=== PATIENT | female | born 1940 | race Caucasian/White ===

== ENCOUNTER 2022-04-08 13:41 | Outpatient (REF) | payer MEDICARE, OTHER, SELFPAY ==
[2022-04-08 15:37] LABS: Blood Urea Nitrogen 23 mg/dL (9-16); Estimated Glomerular Filt Rate 53
[2022-04-08 15:59] LABS: Thyroid Stimulating Hormone 3.08 uIU/mL (0.32-4.0)
[2022-04-08 16:12] LABS: Folate > 20.0 ng/mL (> or = 4.0); Vitamin B12 304 pg/mL (200-900)
== END 2022-04-08 13:42 | disposition home or self-care (01) ==
LOC: HO.LAB 13:41
PROVIDERS: PCP Internal Medicine; Visit Provider Psychiatry & Neurology Neurology
DX: G31.84 Mild cognitive impairment of uncertain or unknown etiology (principal)
CPT/HCPCS: 36415; 82565; 82607; 82746; 84436; 84443; 84520

== ENCOUNTER 2025-01-16 14:42 | Outpatient (AMB) | payer MEDICARE, OTHER, SELFPAY ==
--- NOTE | 2025-01-16 15:08 | A.OFFVIS_ITS ---
Intake Visit Reasons: 6 weeks f/u Accompanied by: Spouse Allergies sulfamethoxazole (From Bactrim) Allergy (Unknown, Verified 01/16/25 15:12) Unknown trimethoprim (From Bactrim) Allergy (Unknown, Verified 01/16/25 15:12) Unknown ALLOPURINAL Allergy (Unknown, Uncoded 01/16/25 15:12) Unknown CEPHALEXIN Allergy (Unknown, Uncoded 01/16/25 15:12) Unknown DOXYCYCLINE Allergy (Unknown, Uncoded 01/16/25 15:12) Unknown Medication List - Last Reconciled 01/16/25 by Bing Rudolph CNP atorvastatin 80 mg PO DAILY cinacalcet 30 mg PO DAILY fluticasone propionate 50 mcg/actuation 2 sprays intranasal DAILY gabapentin mg PO lisinopril 40 mg PO DAILY omeprazole 20 mg PO DAILY probenecid 500 mg PO BID propranolol 60 mg PO BID topiramate 25 mg PO BEDTIME HPI Comments Details: Ocular migraines were pretty good with topiramate. They were not even happening once a week. No medication side effects. Pain to bottom of feet and tenderness to sides of feet was stable with current dose of gabapentin and has not had much at all. Sleep was okay at night, using CPAP, and sleep was not disrupted from pain. Walking with cane. She was had one fall when changing positions. She was still having some dizziness, especially when changing positions. Started to have more ocular migraines when propranolol dose reduced from 80mg twice a day to 60mg twice a day by PCP?due to low heart rate and dizziness in 08/2024. Ocular migraines were?happening about 3x/week and lasting up to 20 minutes. It may happen twice in one day. No subsequent headache. No specific triggers. No family history of migraines. She has not had severe migraine headache with photophobia, sonophobia, or nausea for many years. Around 2015, she started having ocular migraines characterized by zigzags in her vision, circles of lights, and other phenomenon that last from 2-20 minutes without any pattern and are not followed by headache. She tried verapamil 120mg/day for few months which did not help. Burning in her left foot on the out border. Soles and sides of feet hurt. Diagnosed with neuropathy several years ago. She apparently had nerve conduction study done at [facility], the record of which is not available. She started also noticing some short-term memory problems beginning in 2021. [facility] Medical History (Updated 01/16/25 @ 15:11 by Bing Rudolph CNP) ANGIE on CPAP MCI (mild cognitive impairment) Hypertension Peripheral neuropathy Migraine Ocular migraine Review of Systems Const Denies chills, Denies daytime sleepiness, Reports difficulty sleeping, Denies fatigue, Denies fever(s), Denies frequent falls, Reports headache(s), Denies increased appetite, Denies poor appetite, Denies snoring, Denies weakness, Denies weight gain and Denies weight loss Eyes Denies loss of vision ENT Denies vertigo, Denies dizziness, Reports headache(s) and Denies neck pain Card Denies chest pain at rest, Denies chest pain with activity, Denies syncope, Denies leg edema, Denies palpitations, Denies dyspnea and Denies dyspnea on exertion Resp Denies cough, Denies dyspnea, Denies dyspnea on exertion and Denies snoring GI Denies abdominal pain, Denies constipation, Denies heartburn, Denies diarrhea and Denies nausea Denies urinary frequency, Denies urinary incontinence and Denies urinary urgency Musc Denies abnormal gait, Reports back pain, Reports myalgias, Reports arthralgias, Denies neck pain, Reports numbness and Reports tingling Neuro Denies abnormal gait, Denies vertigo, Denies dizziness, Denies syncope, Denies frequent falls, Reports headache(s), Denies lack of coordination, Denies loss of vision, Reports memory loss, Reports numbness, Denies Other visual disturbances, Denies restless legs, Denies seizure-like activity, Reports tingling, Denies paresthesias, Denies tremor(s) and Denies weakness Psych Denies anxiety, Denies depression, Denies auditory hallucinations, Reports memory loss and Denies visual hallucinations Endo Denies fatigue and Denies palpitations Physical Exam Const Other: General Appearance:? normal, in no acute distress. Heart:? S1, S2 normal, no murmurs. Lungs:? clear anteriorly and posteriorly. Musculoskeletal:? normal. Extremities:? no edema. Psych:? alert, oriented, cognitive function intact, cooperative with exam. Neuro Other: Abnormal Neurological Findings:?Absent ankle reflexes. Decreased vibration and pinprick sensation below ankle. In wheelchair. Mental Status: alert and oriented X 3. Normal attention, orientation, memory, and affect. Cranial Nerves: Pupils are equal, round, and reactive to light. External ocular muscles are intact. Visual crouch are full, no ptosis. Face is symmetrical, no facial weakness or droop. Facial sensations are normal. Tongue protrudes in midline. Palate elevates symmetrically. Shoulder shrugging is normal Motor Examination: As above, otherwise normal muscle tone, bulk and strength. No atrophy or fasciculations. No drift of the extended upper extremities. DTR 2+. Plantars are flexor. Sensory Exam: As above, otherwise normal light touch, temperature, pinprick, vibration, and joint-position sensations. Rhomberg sign is absent. Coordination: No ataxia. No titubation. Jvkcde-ve-mgxg, pphd-nlej-cpao test, and rapid alternating movements were normal. Gait Exam: In wheelchair. Cerebellar Signs: Apwxcx-rh-kmqd and pozb-im-ckul is normal. No dysdiadochokinesia. Extrapyramidal System: No tremor, rigidity with normal facial expressions. No bradykinesia. No bradyphrenia. Normal arm swing and posture. No propulsion or retropulsion. Speech: Normal. No dysphasia or dysarthria. Assessment & Plan Assessment & Plan (1) Ocular migraine: Code(s): G43.109 - Migraine with aura, not intractable, without status migrainosus Category: Medical Plan: Continue topiramate 25mg 1 tablet at bedtime. Decrease propranolol 40mg 1 tablet twice a day. (2) Peripheral neuropathy: Code(s): G62.9 - Polyneuropathy, unspecified Category: Medical Qualifiers: Peripheral neuropathy type: polyneuropathy, unspecified Qualified Code(s): G62.9 - Polyneuropathy, unspecified Plan: Continue gabapentin 600mg 1 tablet in the morning, 1 tablet in the evening, and 2 tablets at bedtime (3) MCI (mild cognitive impairment): Code(s): G31.84 - Mild cognitive impairment of uncertain or unknown etiology Category: Medical Plan . Medications: New topiramate 50 mg PO .at bedtime 90 tabs 1RF 90 days propranolol 40 mg PO BID 180 tabs 1RF 90 days Discontinued topiramate Discontinued Reason: Order 25 mg PO BEDTIME Coding Level of Care Code Est Pt Level 4 (61696) Diagnoses Ocular migraine G43.109 Peripheral polyneuropathy G62.9 Peripheral neuropathy type: polyneuropathy, unspecified MCI (mild cognitive impairment) G31.84
--- OUTSIDE RECORDS SUMMARY | 2025-01-16 15:16 | XMS_ITS | Clinical Summary ---
Author Organization [facility] Address [address] [place] [address] Care Team Providers Care Body Builder Name Role Phone Adair Merrill MD Primary Care Provider Allergies Active Allergy Reactions Criticality Noted Date Comments Allopurinol 12/13/2020 Sulfamethoxazole-Trimethoprim 2020 Cephalexin 12/13/2020 Ciprofloxacin 12/13/2020 Doxycycline 12/13/2020 Medications Medication Sig Dispensed Refills Start Date End Date Status atorvastatin (LIPITOR) tablet 40 mg Take 2 tablets (80 mg total) by mouth daily. 0 Active probenecid (BENEMID) 500 MG tablet Take 1 tablet (500 mg total) by mouth 2 (two) times a day. 0 Active omeprazole (PriLOSEC) 20 MG capsule Take 1 capsule (20 mg total) by mouth daily. 0 Active lisinopril (PRINIVIL,ZESTRIL) tablet 20 mg Take 1 tablet (20 mg total) by mouth daily. 0 Active Multiple Vitamins-Minerals (PRESERVISION AREDS 2 PO) Take by mouth. 0 Active Multiple Vitamin (VITAMIN E/FOLIC ACID/B-6/B-12 PO) Take by mouth. 0 Act jacqueline folic acid (FOLVITE) tablet 1 mg Take 1 tablet (1 mg total) by mouth daily. 0 Active amoxicillin (AMOXIL) 500 MG capsule Take 1 capsule (500 mg total) by mouth continuous prn. Prior to dental procedures 0 Active gabapentin (NEURONTIN) 600 MG tablet Take 1 tablet (600 mg total) by mouth 3 (three) times a day. 0 Active salmeterol (SEREVENT) 50 MCG/DOSE diskus inhaler Inhale 1 inhalation. into the lungs 2 (two) times a day. 0 Active verapamil (VERELAN PM) 120 MG 24 hr capsule Take 1 capsule (120 mg total) by mouth every night at bedtime. 0 Active propranolol (INDERAL) 80 MG tablet Take 1 tablet (80 mg total) by mouth 3 (three) times a day. 0 Active ezetimibe (ZETIA) tablet 10 mg Take 1 tablet (10 mg total) by mouth daily. 0 Active aspirin EC 81 MG tablet Take 1 tablet (81 mg total) by mouth daily. 0 Active Umeclidinium-Vilante rol (Anoro Ellipta) 62.5-25 MCG/ACT AEPB Inhale into the lungs. 0 Active Apoaequorin (PREVAGEN PO) Take by mouth. 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), right 01/04/2018 Gastroesophageal reflux disease 12/25/2017 COPD (chronic obstructive pulmonary disease) 11/2017 Immunizations Name Administration Dates Next Due Covid-19 (Pfizer) Dilution Required 08/22/2020,0 08/01/2020 Social History Tobacco Use Types Packs/Day Years Used Date Smoking Tobacco: Never Assessed Sex and Gender Information Value Date Recorded Sex Assigned at Not on file Gender Identity Not on file Sexual Orientation Not on file Job Start Date Occupation Industry Not on file Not on file Not on file Last Filed Vital Signs Vital Sign Reading Time Taken Comments Blood Pressure 144/53 12/14/2023 1:12 PM EDT Pulse 66 12/14/2023 1:12 PM EDT Temperature 36.1 C (97 F) 12/14/2023 1:12 PM EDT Respiratory Rate - - Oxygen Saturation 94% 12/14/2023 1:12 PM EDT Inhaled Oxygen Concentration - - Weight 126.7 kg (279 lb 6.4 oz) 12/14/2023 1:12 PM EDT Height - - Body Mass Index - - Plan of Treatment Health Maintenance Due Date Last Done Comments Depression Screening 1954 Preventative Health Evaluation 1960 DTap / Tdap / Td (1 - Tdap) 1961 Fall Risk Assessment 2007 Osteoporosis Screening (DEXA Scan) 2007 RSV Adult > 60+ Yrs or (1 - 1-dose 75+ series) 2017 Shingrix-Zoster Vaccine (2 of 2) 11/23/2018 09/28/2018 COVID-19 Vaccine ( season) 2024 10/04/2021, 03/21/2021, 08/22/2020, Additional history exists Influenza Vaccine (#1) 2025 3, 03/21/2021, 03/22/2019, Additional history exists Pneumococcal Vaccine Completed 04/14/2023, 04/18/2014, 01/31/2010 Hepatitis B Vaccines Aged Out No long er eligible based on patient's age to complete this topic RSV Ped < 20 months Aged Out No longe r eligible based on patient's age to complete this topic Care Teams Body Builder Relationship Specialty Start Date End Date Adair Merrill MD [address] [place] [address] PCP - General Internal Medicine 12/13/21
--- OUTSIDE RECORDS SUMMARY | 2025-01-16 15:16 | XMS_ITS | Clinical Summary ---
Author Organization [employer] [address] [place] [address] [place] [phone] Phone Care Team Providers Care Selling Underwriter Name Role Phone Adair Merrill MD Primary Care Provider Encounters Date Type Department Care Team Description 11/11/[address] [facility] [address] [facility] [place] [address] Justine Hall DO Dysuria from Last 3 Months Immunizations Name Administration Dates Next Due Pfizer (ages 12 & older) JAY S-CoV-2 COVID-19, mRNA, LNP-S, wanda-sucrose, preservative free 10/04/2021 Pfizer SARS-CoV-2 COVID-19, mRNA, LNP-S, preservative free 03/21/2021 Medical History Medical History Date Comments Coronary artery disease DX:Coron jeremy artery disease Social History Tobacco Use Types Packs/Day Years Used Date Smoking Tobacco: Never Assessed Comments Unknown Sex and Gender Information Value Date Recorded Sex Assigned at Not on file Legal Sex Female 5:52 PM EST Gender Identity Not on file Sexual Orientation Not on file Obstetrics History Last Filed Vital Signs Vital Sign Reading Time Taken Comments Blood Pressure 144/53 12/14/2023 1:12 PM EDT Lef t arm Pulse 66 12/14/2023 1:12 PM EDT Temperature - - Respiratory Rate - - Oxygen Saturation - - Inhaled Oxygen Concentration - - Weight 127 kg (279 lb 6.4 oz) 12/14/2023 1:12 PM EDT Height - - Body Mass Index - - Plan of Treatment Health Maintenance Due Date Last Done Comments DTaP,Tdap,and Td Vaccines (1 - Tdap) 1961 Pneumococcal Vaccine: 50+ Years (1 of 2 - PCV) 1961 Zoster Vaccines (1 of 2) 1961 RSV Immunization Adult Patients (1 - 1-dose 75+ series) 2017 Cholesterol Screening (Lipid Panel) 06/01/2022 Colorectal Cancer Screening: Colonoscopy 06/01/2022 Falls Risk Assessment 06/01/2022 Osteoporosis Screening (Bone Density Screening) 06/01/2022 Social Influencers of Health Screening 06/01/2022 Hypertension/CHF/CAD Annual BMP Blood Test 06/06/2022 Medicare Annual Wellness Visit 04/15/2023 04/15/2022 COVID-19 Vaccine ( season) 2024 10/04/2021, 03/21/2021, 08/22/2020, Additional history exists Depression Screening 06/22/2024 Influenza Vaccine (#1) 2025 3, 03/19/2022, 03/21/2021, Additional history exists HIB Vaccines Aged Out No longer eligi ble based on patient's age to complete this topic HPV Vaccines Aged Out No longer eligi ble based on patient's age to complete this topic Hepatitis A Vaccines Aged Out No long er eligible based on patient's age to complete this topic Hepatitis B Vaccines Aged Out No long er eligible based on patient's age to complete this topic IPV Vaccines Aged Out No longer eligi ble based on patient's age to complete this topic MMR Vaccines Aged Out No longer eligi ble based on patient's age to complete this topic Meningococcal ACWY Vaccine Aged Out N o longer eligible based on patient's age to complete this topic Meningococcal B Vaccine Aged Out No l onger eligible based on patient's age to complete this topic RSV Immunization Patients Under 20 months Aged Out No longer eligible based on patient's age to complete this topic Varicella Vaccines Aged Out No longer eligible based on patient's age to complete this topic Procedures Procedure Name Priority Date/Time Associated Diagnosis Comments CULTURE URINE Routine 11/11/2024 12:00 AM EDT Dysuria from Last 3 Months Results * (ABNORMAL) Culture urine (11/11/2024 12:00 AM EDT) Culture, Urine >100,000 CFU/mL Escherichia coli(A) DENNY 11/13/2024 12:45 PM EDT [facility] Comment: This is an edited result. Previous organism was Gram negative bacilli on 11/12/2024 at 0750 EDT. Urine Urine specimen from urethra / Unknown 11/11/2024 11/11/2024 5:50 PM EDT Narrative Organism Antibiotic Method Susceptibility Escherichia coli Amoxicillin/Clavulanate DENNY 16 ug/ml: Intermediate Escherichia coli Ampicillin/Sulbactam DENNY 16 ug/ml: Intermediate Escherichia coli Piperacillin/Tazobactam DENNY <=4 ug/ml: Susceptible Escherichia coli Cefazolin (Urine) DENNY 8 ug/ml: Susceptible Escherichia coli Cefoxitin DENNY <=4 ug/ml: Susceptible Escherichia coli Ceftazidime DENNY <=0.5 ug/ml: Susceptible Escherichia coli Ceftriaxone DENNY <=0.25 ug/ml: Susceptible Escherichia coli Cefepime DENNY <=0.12 ug/ml: Susceptible Escherichia coli Meropenem DENNY <=0.25 ug/ml: Susceptible Escherichia coli Amikacin DENNY 2 ug/ml: Susceptible Escherichia coli Gentamicin DENNY >=16 ug/ml: Resistant Escherichia coli Ciprofloxacin DENNY <=0.06 ug/ml: Susceptible Escherichia coli Levofloxacin DENNY <=0.12 ug/ml: Susceptible Escherichia coli Nitrofurantoin DENNY <=16 ug/ml: Susceptible Escherichia coli Trimethoprim/Sulfamethoxazole DENNY >=320 ug/ml: Resistant Justine Hall DO LAB MICROBIOLOGY - GENERAL ORDER VALERIE Final Result [facility] [address] [place] [address], from Last 3 Months Insurance [employer] MEDICARE Care Teams Selling Underwriter Relationship Specialty Start Date End Date Adair Merrill MD [address] [place] [address] PCP - General Internal Medicine 10/01/17
--- OUTSIDE RECORDS SUMMARY | 2025-01-16 15:16 | XMS_ITS | Clinical Summary ---
Author Organization [facility] Address [address] [place] [address] Care Team Providers Care Mate Fishing Vessel Name Role Phone Unavailable Primary Care Provider Unavailabl e Social History Tobacco Use Types Packs/Day Years Used Date Smoking Tobacco: Never Assessed Comments Unknown Sex and Gender Information Value Date Recorded Sex Assigned at Not on file Legal Sex Female 12:40 PM EDT Gender Identity Not on file Sexual Orientation Not on file Plan of Treatment Health Maintenance Due Date Last Done Comments DTaP/Tdap/Td Vaccines (1 - Tdap) 1961 Pneumococcal Vaccines 50+ (1 of 1 - PCV) 1992 Zoster (Shingles) Vaccine (1 of 2) 1992 RSV Vaccine 60 years and old er and Patients (1 - 1-dose 75+ series) 2017 COVID-19 Vaccine (2023-2 5 season) 2024 Hepatitis B Vaccines Aged Out No long er eligible based on patient's age to complete this topic
--- OUTSIDE RECORDS SUMMARY | 2025-01-16 15:16 | XMS_ITS | Data Portability ---
Author Organization [facility], [facility] Address [address] [place] [address] Care Team Providers Care Financial Risk Manager Name Role Phone SARAH BETH NAM Primary Care Provider [phone] Assessment Encounter Date Assessment Date Assessment LastModified by Organization Details LastModified Time 12/01/2023 12/01/2023 PROBLEM: History of bilateral total knees HISTORY: The patient is an 83-year-old female whom I cared for in the past performed staged bilateral total hips. Apparently 1998 the patient underwent simultaneous bilateral total knees. The patient reports that in the last few weeks she has noticed increasing pain. Her right leg is worse than her left. She fell on her left leg about 6 weeks ago and her right about 3 weeks ago. She uses a rollator walker at all times. Is unclear to me when she last had long-term follow-up for her knees in the past. Knees were performed by Dr. Jeter and are [place] knees. The patient ambulates with a rollator walker. She denies any new onset mechanical symptoms. She thinks she may notice some swelling. The patient's knee symptom profile form was reviewed and is part of the medical record. The patient remains symptomatic and has had an unsuccessful history of appropriate conservative therapy (non-surgical medical management). Non-surgical medical management has been implemented for 3 months or more to assess effectiveness. Conservative treatment as clinically appropriate for the patient s current episode of care including, but not limited to, one or more of the following: anti-inflammator y medications, analgesics, flexibility and muscle strengthening exercises, supervised physical therapy (Activities of daily living (ADLs) diminished despite completing a plan of care), activity restrictions as is reasonable, assistive device use, weight reduction as appropriate, and therapeutic injections into the joint as appropriate PFMSH and ROS have been reviewed, updated, and is located in the patient s chart. PAST MEDICAL HISTORY: Past medical history is significant for hypercholesterol emia, COPD, shortness of breath, hypertension, hepatitis, acid reflux, back pain PAST SURGICAL HISTORY: Past surgical history includes bilateral total knees and bilateral total hips MEDICATIONS: Please see intake form. ALLERGIES: Patient reports an allergy to allopurinol, doxycycline, Bactrim, cephalexin, Cipro, Vesicare does not report an allergy to metal, latex, Iodine, tape, or adhesives. SOCIAL HISTORY: The patient is retired. She comes the office today with her . She does not consume tobacco or illegal drugs. Consumes 2-3 alcoholic beverages per week. She last saw the dentist 2 months ago. She has a ramp and support system at home. PHYSICAL EXAMINATION: Please see vitals recorded below Mental status: Alert and lucid. Normal insight, affect, and grooming. RACKER OCTAVE BOARD: Gross motor coordination is intact. No spasticity or clonus noted. Extremities: Calves are soft and nontender. Skin intact. Palpable pedal pulses equal bilaterally. ORTHOPEDIC EXAMINATION: Negative SLR tests bilaterally. Full ROM of both hips without pain. No trochanteric tenderness. Evaluation of knees: Bilateral Knee range of motion is 0-110 degrees. Knee is stable to varus/valgus loading, anterior/posteri or drawer testing, Bekah testing. No erythema, no redness. There is moderate sub patellar crepitus. Patient has no grinding. She has mild anterior posterior glide. She has ecchymosis on her left lower extremity. She has well-healed surgical scars bilaterally Peripheral vascular, lymphatic examination, skin, neurological coordination, reflexes, and sensation are within normal limits. IMAGING: X-rays ordered, obtained, and reviewed in the office today on [facility] PACS: Weightbearing AP of both knees, lateral of the right knee, and sunrise view of both knees demonstrate; Show appropriate position of the patient's bilateral t total knee arthroplasty. Overall limb alignment is neutral. Implant position is satisfactory. Patellar tracking is midline. Bone implant interfaces are intact and no evidence of fracture or osteolysis. There is no specific evidence of osteolysis. There is no specific evidence of asymmetric wear. Presently she is are CR knees. IMPRESSION: Status post bilateral total knees with new onset pain PLAN: The patient does have bilateral total knees that are nearly 27 years of age. Therefore sterile condominiums. The probability of symptomatic polyethylene wear is quite high. However, based on the patient's history and multiple medical problems I would very hesitant to proceed with surgical intervention. Review of x-rays does demonstrate evidence of fracture. Further there is no evidence of asymmetric wear of the polyethylene. Initially I plan to get CT scans to evaluate for osteolysis. However the patient is unsure if she would even want surgical intervention nor do I know if replacement liners are available. Ultimately decided on a short course of physical therapy for mobilization. Hopefully this will help decrease the patient's symptoms. Will have her return to the office for reevaluation after PT. If she remains symptomatic we will obtain CT scans and three-phase bone scan. The patient knows I will be happy to meet with them at any time in order to review any additional questions or concerns that they might have. Patient was satisfied with this plan. I attempted to answer all of the patient's questions. [facility] speech recognition neon glass bender software was used to create portions of this document. An attempt at proofreading has been made to minimize errors. Please call for corrections. nina Not available 12/01/2023 15:54:35 Plan of Treatment Reminders Order Date Submit Date Provider Last Modified By Organization Details Last Modified Time Details Appointments None recorded . Lab None recorded . Referral physical therapis t referral - GAIT TRAINING AND AMBULATI ON BILATERA L KNEE S/P TKR 03/18/19 99 2023 024 [email or web address] [facility] ([facility]), [address], [place], [address], 4 11:51:14 Procedures None recorded . Surgeries None recorded . Imaging XR, knee, 4 or more view - RM 204/BILA TERAL TKR 03/18/19 99 2023 024 [email or web address] [facility], [address], [facility] [address], [place], [address], 4 11:51:13 Medication Orders None recorded . Patient TargetsNo targets recorded. Patient InstructionsNo instructions recorded. Reason for Referral Physical Therapist Referral for History of bilateral knee arthroplasty GAIT TRAINING AND AMBULATION GAIT TRAINING AND AMBULATIONBILATERAL KNEE S/P TKR 03/18/1999 Referring Physician: Errol Chavez, Orthopedic Surgery, [id number] Encounter Date: 12/01/2023 Results Created Date Observation Date Name Description Value Unit Range Abnormal Flag Note LastModifiedBy Organization Detail LastModifiedTime 12/01/19 24 12/01/2023 XR, knee, 4 or more view [email or web address] ?Encry pted=s hAaTro YD8dLq bEUv6g %2BXZw aYqtaq 0bqfl% 2Fg9IQ a4ajBk vP9nXo QUaueC m3YtLR FvZlgJ JJ8mAn HZtai3 5j7884 AC0Kua XWNUab eUC8mr 84%3D INTERFACE [facility] [address] [facility] [address], [place], [address], 12/01/2023 14:55:26 12/01/19 24 12/01/2023 XR, knee, 4 or more view [email or web address] ?Encry pted=s hAaTro YD8dLq bEUv6g %2BXZw aYqtaq 0bqfl% 2Fg9IQ a4ajBk vP9nXo QUaueC m3YtLR FvZlgJ JJ8mAn HZtai3 0s5320 AC0Kua XWNUab eUC8mr 84%3D INTERFACE [facility] [address] [facility] [address], [place], [address], 12/01/2023 14:55:28 Result Notes Documentation Provider Name and Address Organization Details Recorded Time Xr, Knee, 4 Or More View : [email or web address] Encrypted=xzBwZhvII9uAjaD Uv6g%1EHWurCetzn0wfkp%2Fg 7UPv6rdFjqQ6nWaGUvnaAs9Iz QGJkDsxCMJ8aDmJBzyg80z329 0PA2RbiJPHFtewVE3pg49%3D Not Available [facility] 12/01/2023 14:5 5:26 Xr, Knee, 4 Or More View : [email or web address] Encrypted=ogPsCdaLQ1eOmcS Uv6g%3WCLotGejby1hpdc%2Fg 0CAs2isYavX2vUcZMvqdPc0Af NHAmImoYQA3iHjTSska11r987 6SP4YrjOOCYxgqNE5uw31%3D Not Available [facility] 12/01/2023 14:5 5:29 Problems Name Problem SNOMED Code Status Onset Date Resolution Date Notes Provider Name and Address Organization Details Recorded Time No complaints 263124958 Active Status : 'A'; Not Available [facility] 09:21:02 Rotator cuff arthropath y of right shoulder 3930375938914 9106 Active 2023 Andrea Cedeno PA-C [address] [facility] [place], [place], [address] , [facility] 12:44:55 Problem Notes None recorded. Procedures Surgical History Date Name Laterality Status Provider Name and Address Organization Details Recorded Time 5 Sports Shoulder Bilateral completed Andrea Cedeno PA-C [address] [facility] [place], [place], [address], [facility] 11/08/2024 13:43:25 4 Sports Shoulder completed Andera Cedeno PA-C [address] [place] [address], [address], [facility] 10/28/2023 12:44:42 Imaging Results None recorded. Procedure Notes None recorded. Medical Equipment None Reported. Allergies Allergen ID Allergen Name Allergen Category Reaction Reaction Severity Criticality Documentation Date Start Date Code Code System Note Provider Name and Address Organization Details Recorded Time 571990 Cipro medicatio n Not available Not available Not available 08/24/2023201856 3 RxNorm Not Available [facility] 16:01:25 430049 Bactrim medicatio n Not available Not available Not available 08/24/20232018 48871 9 RxNorm Not Available [facility] 4 16:01:25 316747 allopurin ol medicatio n Not available Not available Not available 12/01/2023 519 RxNorm PALOMO PELLETIER [facility] 4 14:42:15 394417 doxycycli ne Not available Not available Not available Not available 12/01/2023 3640 [facility] 4 14:42:20 840639 cephalexi n medicatio n Not available Not available Not available 12/01/2023 2231 RxNorm PALOMO PELLETIER [facility] 4 14:42:31 337938 Vesicare medicatio n Not available Not available Not available 12/01/2023 53505 2 [facility]Norm [facility] 4 14:42:39 Medications Name Sig Start Date Stop Date Status Note LastModified by Organization Details LastModified Time amoxicillin 500 mg capsule TAKE 1 CAPSULE BY MOUTH THREE TIMES DAILY UNTIL FINISHED active Not Available Not Available No t Available atorvastatin 80 mg tablet active Not Available Not Available Not Available gabapentin 600 mg tablet active Not Available Not Available Not Available propranolol 80 mg tablet TAKE 1 TABLET BY MOUTH DAILY FOR 1 WEEK THEN INCREASE TO TAKE 1 tablet TWICE DAILY directed active Not Available Not Available Not Available cefpodoxime 100 mg tablet TAKE 1 TABLET BY MOUTH TWICE DAILY FOR 7 DAYS active Not Available Not Available No t Available lisinopril 20 mg tablet active Not Available Not Available Not Available propranolol 60 mg tablet TAKE 1 TABLET BY MOUTH TWICE DAILY active Not Available Not Available No t Available tramadol 50 mg tablet TAKE 1 TABLET BY MOUTH every 12 hours NEEDED FOR SEVERE PAIN active Not Available Not Available Not Available propranolol 40 mg tablet active Not Available Not Available Not Available triamcinolon e acetonide 0.1 % dental paste apply 1 application By Mouth 3 times a day active Not Available Not Available Not Available cephalexin 500 mg capsule TAKE 1 CAPSULE BY MOUTH THREE TIMES DAILY active Not Available Not Available Not Available omeprazole 20 mg capsule,tobias yed release active Not Available Not Available Not Available amoxicillin 250 mg capsule TAKE 1 CAPSULE BY MOUTH THREE TIMES DAILY UNTIL FINISHED active Not Available Not Available No t Available mupirocin 2 % topical ointment Apply to wound on face twice daily for two weeks. active Not Available Not Available N ot Available furosemide 20 mg tablet TAKE 1 TABLET BY MOUTH DAILY NEEDED FOR EDEMA active Not Available Not Available No t Available azelastine 137 mcg (0.1 %) nasal spray instill 2 SPRAYS IN BOTH nostrils TWICE DAILY NEEDED FOR ALLERGY symptoms active Not Available Not Available No t Available ipratropium bromide 42 mcg (0.06 %) nasal spray instill 2 sprays into Both nostrils 3 times a day as needed for nasal congestion active Not Available Not Available N ot Available propranolol 20 mg tablet active Not Available Not Available Not Available lisinopril 40 mg tablet active Not Available Not Available Not Available fluticasone propionate 50 mcg/actuatio n nasal spray,suspen ekra instil 2 SPRAYS IN EACH nostril DAILY. shake WELL BEFORE using active Not Available Not Available No t Available diazepam 5 mg tablet TAKE 1-2 tabletS BY MOUTH 1 hour prior to procedure (upon arrival to office) active Not Available Not Available No t Available amoxicillin 875 mg-potassium clavulanate 125 mg tablet TAKE 1 TABLET BY MOUTH TWICE DAILY FOR 10 DAYS active Not Available Not Available No t Available probenecid 500 mg tablet active Not Available Not Available Not Available oxycodone 5 mg tablet TAKE 1 TABLET BY MOUTH every 4 hours NEEDED FOR PAIN active Not Available Not Available No t Available ezetimibe 10 mg tablet TAKE 1 TABLET BY MOUTH DAILY active Not Available Not Available Not Available Vitamin D3 25 mcg (1,000 unit) tablet TAKE 1 TABLET BY MOUTH DAILY active Not Available Not Available Not Available cinacalcet 30 mg tablet TAKE 1 TABLET BY MOUTH DAILY active Not Available Not Available Not Available oxycodone HCl-oxycodon e-ASA Take 1-2 tabs every 6 hours as needed. 2019 active Statu s: 'Curr ent'; Not Available Not Available Not Available Anoro Ellipta 62.5 mcg-25 mcg/actuatio n powder for inhalation active Not Available Not Available N ot Available Vitals Date Recorded Body height Body mass index (BMI) Body weight Provider Name and Address Organization Details Last Updated DateTime 10/28/2023 160.02 cm 48.5 kg/m2 050583.31 g Andrea Cedeno PA-C [address], [place], [address], [facility] 10/28/2023 12:20:37 Date Recorded Body height Body mass index (BMI) Body weight Provider Name and Address Organization Details Last Updated DateTime 11/08/2024 162.56 cm 47.5 kg/m2 263137.09 g Andrea Cedeno PA-C [address] [facility] [address], [place], [address], [facility] 11/08/2024 13:25:26 Date Recorded Body height Body mass index (BMI) Body weight Provider Name and Address Organization Details Last Updated DateTime 12/01/2023 162.56 cm 47.5 kg/m2 814762.09 g PALOMO PELLETIER [facility] 12/01/2023 14:41:29 Date Recorded Body height Body mass index (BMI) Body weight Provider Name and Address Organization Details Last Updated DateTime 01/13/2024 162.56 cm 47.5 kg/m2 715202.09 g Tenisha Reich [facility] 01/13/2024 14:25:55 Social History Question Answer Notes LastModified by Touch[employer] Details LastModified Time Tobacco Smoking Status Never Smoker Andrea Cedeno PA-C [address] [address], [place], [address], [facility] 11/08/2024 13:26:08 What Is Your [facility] Status? [email or web address] Information not available 11/08/2024 Sex: Unknown Functional Status Question Answer Note LastModified by TouchMail Details LastModified Time How many times per week do you consume alcohol? 1-2 times per week Information not available 11/08/2024 Do you use any illicit or recreational drugs? No Information not available 11/08/2024 What is your level of alcohol consumption? Occasional Information not available 11/08/2024 Mental Status None recorded. Family History Nothing Reported. Medical History Condition Response Arthritis Y Asthma Y Sleep Apnea Y Hypertension Y Gynecological HistoryNo gynecological history recorded. Obstetrics History GPAL:G 0 P 0 0 0 0 Past Encounters Encounter ID Performer Location Encounter Start Date Encounter Closed Date Diagnosis/Indication Diagnosis SNOMED-CT Code Diagnosis ICD10 Code Diagnosis Note [id number] [facility] [address] [place] [address] 10/28/2023 12:07:15 11/10/2023 12:54:32 Rotator cuff arthropathy of right shoulder 8876078477 4561391 M25.581 [id number] MD Anna [facility] [address] [place] [address] 12/01/2023 14:15:06 01/04/2024 11:51:13 History of bilateral knee arthroplasty 7889682253 475363 Z96.726 [id number] [facility] [place] [address] [place] [address] 01/13/2024 14:20:21 01/13/2024 15:58:04 History of bilateral total knee replacement 7156729163 570463 Z96.653 Degenerati on of lumbar intervertebral disc 91402154 M51.36 [id number] Andrea Cedeno PA-C [facility] [address] [place] [address] 11/08/2024 13:19:59 11/10/2024 14:32:42 Rotator cuff arthropathy of right shoulder 7351263702 5504569 M25.811 Health Concerns Section Related Observation LastModified by Organization Detai ls LastModified Time None Recorded Concern Status LastModified by Organization Details LastModified Time None Recorded Advance Directives Directive None Recorded Payers Insurance Date Sequence Insurance Name Policy Number Policy [place] Covered Member ID [place] Member ID Guarantor Name 11/08/2024 1 [place] [employer] Tana Orozco [id number] Tana Orozco 11/11/2024 2 [facility] (MEDICARE SUPPLEMENT) Tana Orozco [id number] Tana Orozco OBGyn Episode No OBEpisode recorded.
== END 2025-01-16 15:32 | disposition home or self-care (01) ==
LOC: HO.HSM 14:43
PROVIDERS: PCP Internal Medicine; Referring Provider Internal Medicine; Visit Provider Registered Nurse
DX: G43.109 Migraine with aura, not intractable, without status migrainosus (principal); G62.9 Polyneuropathy, unspecified; G31.84 Mild cognitive impairment of uncertain or unknown etiology
CPT/HCPCS: 99214

== ENCOUNTER → 2025-01-16 14:42 | Outpatient (BNVA) | payer MEDICARE, OTHER, SELFPAY | PROVIDERS: PCP Internal Medicine; Referring Provider Internal Medicine; Visit Provider Registered Nurse | DX: G43.109 Migraine with aura, not intractable, without status migrainosus (principal); G62.9 Polyneuropathy, unspecified; G31.84 Mild cognitive impairment of uncertain or unknown etiology | CPT/HCPCS: 99212 ==

== ENCOUNTER 2025-04-11 14:35 | Outpatient (AMB) | payer MEDICARE, OTHER, SELFPAY ==
--- NOTE | 2025-04-11 14:37 | MHC.OFFVIS ---
Intake Visit Reasons: 3m Accompanied by: Spouse Allergies sulfamethoxazole (From Bactrim) Allergy (Unknown, Verified 04/11/25 14:40) Unknown trimethoprim (From Bactrim) Allergy (Unknown, Verified 04/11/25 14:40) Unknown ALLOPURINAL Allergy (Unknown, Uncoded 04/11/25 14:40) Unknown CEPHALEXIN Allergy (Unknown, Uncoded 04/11/25 14:40) Unknown DOXYCYCLINE Allergy (Unknown, Uncoded 04/11/25 14:40) Unknown Medication List - Last Reconciled 04/11/25 by Bing Rudolph CNP atorvastatin 80 mg PO DAILY cinacalcet 30 mg PO DAILY fluticasone propionate 50 mcg/actuation 2 sprays intranasal DAILY gabapentin mg PO lisinopril 40 mg PO DAILY omeprazole 20 mg PO DAILY probenecid 500 mg PO BID propranolol 40 mg PO BID 90 days topiramate 50 mg PO .at bedtime 90 days HPI Comments Details: She was doing okay. Ocular migraines were well controlled with topiramate and propranolol, last was about 2 weeks ago. No medication side effects. Pain to bottom of feet and tenderness to sides of feet was stable with current dose of gabapentin. Sleep was okay at night, using CPAP, and sleep was not disrupted from pain. Walking with cane, no falls. Started to have more ocular migraines when propranolol dose reduced from 80mg twice a day to 60mg twice a day by PCP?due to low heart rate and dizziness in 08/2024. Ocular migraines were?happening about 3x/week and lasting up to 20 minutes. It may happen twice in one day. No subsequent headache. No specific triggers. No family history of migraines. She has not had severe migraine headache with photophobia, sonophobia, or nausea for many years. Around 2015, she started having ocular migraines characterized by zigzags in her vision, circles of lights, and other phenomenon that last from 2-20 minutes without any pattern and are not followed by headache. She tried verapamil 120mg/day for few months which did not help. Burning in her left foot on the out border. Soles and sides of feet hurt. Diagnosed with neuropathy several years ago. She apparently had nerve conduction study done at [facility], the record of which is not available. She started also noticing some short-term memory problems beginning in 2021. [facility], [facility] Medical History (Updated 01/16/25 @ 15:11 by Bing Rudolph CNP) ANGIE on CPAP MCI (mild cognitive impairment) Hypertension Peripheral neuropathy Migraine Ocular migraine Review of Systems Const Denies chills, Denies daytime sleepiness, Reports difficulty sleeping, Denies fatigue, Denies fever(s), Denies frequent falls, Reports headache(s), Denies increased appetite, Denies poor appetite, Denies snoring, Denies weakness, Denies weight gain and Denies weight loss Eyes Denies loss of vision ENT Denies vertigo, Denies dizziness, Reports headache(s) and Denies neck pain Card Denies chest pain at rest, Denies chest pain with activity, Denies syncope, Denies leg edema, Denies palpitations, Denies dyspnea and Denies dyspnea on exertion Resp Denies cough, Denies dyspnea, Denies dyspnea on exertion and Denies snoring GI Denies abdominal pain, Denies constipation, Denies heartburn, Denies diarrhea and Denies nausea Denies urinary frequency, Denies urinary incontinence and Denies urinary urgency Musc Denies abnormal gait, Reports back pain, Reports myalgias, Reports arthralgias, Denies neck pain, Reports numbness and Reports tingling Neuro Denies abnormal gait, Denies vertigo, Denies dizziness, Denies syncope, Denies frequent falls, Reports headache(s), Denies lack of coordination, Denies loss of vision, Reports memory loss, Reports numbness, Denies Other visual disturbances, Denies restless legs, Denies seizure-like activity, Reports tingling, Denies paresthesias, Denies tremor(s) and Denies weakness Psych Denies anxiety, Denies depression, Denies auditory hallucinations, Reports memory loss and Denies visual hallucinations Endo Denies fatigue and Denies palpitations Physical Exam Const Other: General Appearance:? normal, in no acute distress. Heart:? S1, S2 normal, no murmurs. Lungs:? clear anteriorly and posteriorly. Musculoskeletal:? normal. Extremities:? no edema. Psych:? alert, oriented, cognitive function intact, cooperative with exam. Neuro Other: Abnormal Neurological Findings:?Absent ankle reflexes. Decreased vibration and pinprick sensation below ankle. Walking with cane. Mental Status: alert and oriented X 3. Normal attention, orientation, memory, and affect. Cranial Nerves: Pupils are equal, round, and reactive to light. External ocular muscles are intact. Visual crouch are full, no ptosis. Face is symmetrical, no facial weakness or droop. Facial sensations are normal. Tongue protrudes in midline. Palate elevates symmetrically. Shoulder shrugging is normal Motor Examination: As above, otherwise normal muscle tone, bulk and strength. No atrophy or fasciculations. No drift of the extended upper extremities. DTR 2+. Plantars are flexor. Sensory Exam: As above, otherwise normal light touch, temperature, pinprick, vibration, and joint-position sensations. Rhomberg sign is absent. Coordination: No ataxia. No titubation. Mdgcih-zz-calp, trst-ggxx-lswk test, and rapid alternating movements were normal. Gait Exam: With cane. Cerebellar Signs: Djooom-kx-yvii is okay. Extrapyramidal System: No tremor, rigidity with normal facial expressions. No bradykinesia. No bradyphrenia. Normal arm swing and posture. No propulsion or retropulsion. Speech: Normal. Results Reviewed Results Reviewed: 02/03/24 NCV/EMG LE Moderately severe axonal sensory and motor peripheral neuropathy in the lower extremities. EMG in the left L4-S1 innervated muscles is consistent with neuropathic changes. Assessment & Plan Assessment & Plan (1) Ocular migraine: Code(s): G43.109 - Migraine with aura, not intractable, without status migrainosus Category: Medical Plan: Continue topiramate 50mg 1 tablet at bedtime. Continue propranolol 40mg 1 tablet twice a day. (2) Peripheral neuropathy: Code(s): G62.9 - Polyneuropathy, unspecified Category: Medical Qualifiers: Peripheral neuropathy type: polyneuropathy, unspecified Qualified Code(s): G62.9 - Polyneuropathy, unspecified Plan: Continue gabapentin 600mg 1 tablet in the morning, 1 tablet in the evening, and 2 tablets at bedtime (3) MCI (mild cognitive impairment): Code(s): G31.84 - Mild cognitive impairment of uncertain or unknown etiology Category: Medical Plan . Medications: Changed From gabapentin PO To gabapentin 600 mg orally 1 tablet in the morning, 1 tablet in the evening, and 2 tablets at bedtime; 360 tabs 1RF 90 days Coding Level of Care Code Est Pt Level 4 (16240) Diagnoses Ocular migraine G43.109 Peripheral polyneuropathy G62.9 Peripheral neuropathy type: polyneuropathy, unspecified MCI (mild cognitive impairment) G31.84
--- OUTSIDE RECORDS SUMMARY | 2025-04-11 19:41 | XMS_ITS | Clinical Summary ---
Author Organization [facility] Address [address] [place] [address] Care Team Providers Care Infusion Therapy Nurse Name Role Phone Unavailable Primary Care Provider Unavailabl e Social History Tobacco Use Types Packs/Day Years Used Date Smoking Tobacco: Never Assessed Comments Unknown Sex and Gender Information Value Date Recorded Sex Assigned at Not on file Legal Sex Female 12:40 PM EDT Gender Identity Not on file Sexual Orientation Not on file Plan of Treatment Health Maintenance Due Date Last Done Comments Advance Care Planning 1940 DTaP/Tdap/Td Vaccines (1 - Tdap) 1961 Pneumococcal Vaccines 50+ (1 of 1 - PCV) 1992 Zoster (Shingles) Vaccine (1 of 2) 1992 RSV Vaccine 50 years and old er and Patients (1 - 1-dose 75+ series) 2017 COVID-19 Vaccine ( - 2023-2 5 season) 2025 Hepatitis B Vaccines Aged Out No long er eligible based on patient's age to complete this topic
--- OUTSIDE RECORDS SUMMARY | 2025-04-11 19:41 | XMS_ITS | Clinical Summary ---
Author Organization [employer] [facility] Address [address] [place] [address] Care Team Providers Care Apprentice Carpenter Name Role Phone Adair Merrill MD Primary [...] 2) 11/23/2018 09/28/2018 COVID-19 Vaccine ( season) 2025 10/04/2021, 03/21/2021, 08/22/2020, Additional history exists Influenza Vaccine (#1) 2025 3, 03/21/2021, 03/22/2019, Additional history exists Pneumococcal Vaccine Completed 04/14/2023, 04/18/2014, 01/31/2010 Hepatitis B Vaccines Aged Out No long er eligible based on patient's age to complete this topic RSV Ped < 20 months Aged Out No longe r eligible based on patient's age to complete this topic Care Teams Apprentice Carpenter Relationship Specialty Start Date End Date Adair Merrill MD [address] [place], [place] [id number] PCP - General Internal Medicine 12/13/21
--- OUTSIDE RECORDS SUMMARY | 2025-04-11 19:41 | XMS_ITS | Data Portability ---
Author Organization [facility] Address [address] [place] [address] Care Team Providers Care Leather Goods Ii Assembler Name Role Phone SARAH BETH NAM Primary Care Provider [phone] Assessment Encounter Date Assessment Date Assessment LastModified [...] and lucid. Normal insight, affect, and grooming. SEXUAL ASSAULT NURSE: Gross motor coordination is intact. No spasticity [...] and reviewed in the office today on [facility] PACS: Weightbearing AP of both knees, lateral [...] to answer all of the patient's questions. [facility] speech recognition informatica architect software was used to create portions of [...] KNEE S/P TKR 03/18/19 99 2023 024 [email or web address] [facility] (Pramod Cruz), [address], [place], [address], 4 11:51:14 Procedures None recorded . Surgeries None recorded . Imaging XR, knee, 4 or more view - RM 204/BILA TERAL TKR 03/18/19 99 2023 024 [facility], [address], [facility] [address], [place], [address], 4 11:51:13 Medication Orders None recorded . Patient TargetsNo targets recorded. Patient InstructionsNo instructions recorded. Reason for Referral Physical Therapist Referral for History of bilateral knee arthroplasty GAIT TRAINING AND AMBULATION GAIT TRAINING AND AMBULATIONBILATERAL KNEE S/P TKR 03/18/1999 Referring Physician: Errol Chavez, Orthopedic Surgery, [id number] Encounter Date: 12/01/2023 Results Created Date Observation Date Name Description Value Unit Range Abnormal Flag Note LastModifiedBy Organization Detail LastModifiedTime 12/01/19 24 12/01/2023 XR, knee, 4 or more view http:/ [email or web address] ?Encry pted=s hAaTro YD8dLq bEUv6g %2BXZw aYqtaq 0bqfl% 2Fg9IQ a4ajBk vP9nXo QUaueC m3YtLR FvZlgJ JJ8mAn HZtai3 8u9543 AC0Kua XWNUab eUC8mr 84%3D INTERFACE [facility] [address] [facility] [address], [place], [address], 12/01/2023 14:55:26 12/01/19 24 12/01/2023 XR, knee, 4 or more view [email or web address] ?Encry pted=s hAaTro YD8dLq bEUv6g %2BXZw aYqtaq 0bqfl% 2Fg9IQ a4ajBk vP9nXo QUaueC m3YtLR FvZlgJ JJ8mAn HZtai3 6e3682 AC0Kua XWNUab eUC8mr 84%3D INTERFACE [facility] [address] [facility] [address], [place], [address], 12/01/2023 14:55:28 Result Notes Documentation Provider Name and Address Organization Details Recorded Time Xr, Knee, 4 Or More View : [email or web address]? Encrypted=tlWdUodKT2sYheG Uv6g%1ORDxuCauvh6jhcs%2Fg 4ASv5exSjpM1zGpKQmqcUw0Fd LEZlYtkJSX7xYqQGnmb59m304 3DU1WppSXDJuipBR8yz80%3D Not Available [employer] 12/01/2023 14:5 5:26 Xr, Knee, 4 Or More View : [email or web address]? Encrypted=bnJyLrlQH7hCghG Uv6g%7CAIveEtybn3ubgj%2Fg 2QUi8olRkrH2wQtLJwbdRb6Ng ITGwGijCYV5zAwQIcsx53c981 0RW4DgyBGRRsglNP6du04%3D Not Available [facility] 12/01/2023 14:5 5:29 Problems Name Problem SNOMED Code Status Onset Date Resolution Date Notes Provider Name and Address Organization Details Recorded Time No complaints 670057760 Active Status : 'A'; Not Available [facility] 09:21:02 Rotator cuff arthropath y of right shoulder 9095639476454 9106 Active 2023 Andrea Cedeno PA-C [address] [place], [place], [address] , [facility] 12:44:55 Problem Notes None recorded. Procedures Surgical History Date Name Laterality Status Provider Name and Address Organization Details Recorded Time 5 Sports Shoulder Bilateral completed Andrea Cedeno PA-C [address] [place], [place], [address], [facility] 11/08/2024 13:43:25 4 Sports Shoulder completed Andrea Cedeno PA-C [address] [place] [address], [address], [facility] 10/28/2023 12:44:42 Imaging Results None recorded. Procedure Notes None recorded. Medical Equipment None Reported. Allergies Allergen ID Allergen Name Allergen Category Reaction Reaction Severity Criticality Documentation Date Start Date Code Code System Note Provider Name and Address Organization Details Recorded Time 211155 Cipro medicatio n Not available Not available Not available 08/24/2023201856 3 RxNorm Not Available [facility] 16:01:25 969562 Bactrim medicatio n Not available Not available Not available 08/24/20232018 69250 9 RxNorm Not Available [facility] 4 16:01:25 203982 allopurin ol medicatio n Not available Not available Not available 12/01/2023 519 RxNorm PALOMO PELLETIER [facility] 4 14:42:15 151198 doxycycli ne Not available Not available Not available Not available 12/01/2023 3640 [facility] 4 14:42:20 983393 cephalexi n medicatio n Not available Not available Not available 12/01/2023 2231 RxNorm PALOMO PELLETIER [facility] 4 14:42:31 935373 Vesicare medicatio n Not available Not available Not available 12/01/2023 04941 2 RxNorm [facility] 4 14:42:39 Medications Name Sig Start [...] fluticasone propionate 50 mcg/actuatio n nasal spray,suspen kera instil 2 SPRAYS IN EACH nostril DAILY. [...] Updated DateTime 10/28/2023 160.02 cm 48.5 kg/m2 134711.31 g Andrea Cedeno PA-C [address] [facility] [address], [place], [address], [facility] 10/28/2023 12:20:37 Date Recorded Body height Body mass index (BMI) Body weight Provider Name and Address Organization Details Last Updated DateTime 11/08/2024 162.56 cm 47.5 kg/m2 634606.09 g Andrea Cedeno PA-C [address] [facility] [address], [place], [address], [facility] 11/08/2024 13:25:26 Date Recorded Body height Body mass index (BMI) Body weight Provider Name and Address Organization Details Last Updated DateTime 12/01/2023 162.56 cm 47.5 kg/m2 073189.09 g PALOMO PELLETIER [facility] 12/01/2023 14:41:29 Date Recorded Body height Body mass index (BMI) Body weight Provider Name and Address Organization Details Last Updated DateTime 01/13/2024 162.56 cm 47.5 kg/m2 611368.09 g Tenisha Reich [facility] 01/13/2024 14:25:55 Social History Question Answer Notes LastModified by [employer] Details LastModified Time Tobacco Smoking Status Never Smoker Andrea Cedeno PA-C [address] [address], [place], [address], [facility] 11/08/2024 13:26:08 What Is Your Relationship Status? [email or web address] Information not available 11/08/2024 Sex: Unknown Functional Status Question Answer Note LastModified by [employer] Details LastModified Time How many times per [...] Diagnosis SNOMED-CT Code Diagnosis ICD10 Code Diagnosis IMO Codes Diagnosis Note [id number] Andrea Cedeno PA-C [facility] [address] [place] [id number] 10/28/2023 12:07:15 11/10/2023 12:54:32 Rotator cuff arthropathy of right shoulder 9734297371 9256911 M25.857 [id number] MD Anna Reid [address] [place] [id number] 12/01/2023 14:15:06 01/04/2024 11:51:13 History of bilateral knee arthroplasty 1045344187 465494 Z96.487 [id number] WILFREDO [facility] [address] [place] [id number] 01/13/2024 14:20:21 01/13/2024 15:58:04 History of bilateral total knee replacement 6172273822 175753 Z96.653 Degenerati on of lumbar intervertebral disc 70940282 M51.36 [id number] Andrea Cedeno PA-C [facility] [address] [place] [id number] 11/08/2024 13:19:59 11/10/2024 14:32:42 Rotator cuff arthropathy of right shoulder 9875550926 6167103 M25.811 Health Concerns Section Related Observation LastModified by Organization Detai ls LastModified Time None Recorded Concern Status LastModified by Organization Details LastModified Time None Recorded Advance Directives Directive None Recorded Payers Insurance Date Sequence Insurance Name Policy Number Policy Knox Covered Member ID Knox Member ID Guarantor Name 11/08/2024 1 [place] [employer] Tana Orozco [id number] Tana Orozco 11/11/2024 2 [facility] (MEDICARE SUPPLEMENT) Tana Orozco [id number] Tana Orozco Notes Date Note Type Note Provider Name and Address Organization Details Recorded Time 10/28/2023 text/html I am seeing the patient today under the supervision of Dr. Chavez who was available but who did not see the patient. REASON FOR VISITSluis antonio comes in today for evaluation with chief complaint of right shoulder pain. She has rotator cuff tear with rotator cuff arthropathy. She is back today reporting increased pain and discomfort in her right shoulder with day-to-day activities. She reports good benefit from previous injection in March. PAST MEDICAL/SURGICAL HISTORYCurrent medications per intake sheet. PHYSICAL FINDINGSThe patient is well appearing, in no apparent distress, alert and oriented to person, place and time. Gait is symmetric. No significant swelling, warmth or erythema about either shoulder. RightShoulder exam : Limited range of motion with slightly altered mechanics in all planes, there is mild tenderness to palpation about the shoulder, moderate crepitus through mid range manipulations. 4/5 strength of the shoulder with ER, Forward flexion. Negative belly press test. Minimal tenderness overlying AC joint. Cervical Exam demonstrates limited ROM without radicular symptoms. Peripheral, vascular, lymphatic examination, skin, neurologic coordination, reflexes, sensation are within normal limits. ASSESSMENTRight Chronic Rotator Cuff Tear PLANModerating activities with the upper extremity recommended. The patient will follow up as symptoms require going forward. [facility] speech recognition informatica architect software was used to create portions of this document. An attempt at proofreading has been made to minimize errors. Please call for corrections Andrea Cedeno PA-C [address] [place] [address] [address] [place], [place], [address], [facility] 10/28/2023 13:21:22 01/13/2024 text/html I am seeing the patient today under the supervision of Dr. Chavez who was available but who did not see the patient.HPI:Patient returns for follow-up of bilateral total knee replacements. Her history is outlined by my colleagues previous note. She has been doing physical therapy for gait training and lower extremity strengthening. This has helped her discomfort in her legs and knees. She has a history of bilateral total knee replacements done in the late 90s with some polyethylene wear. However, in talking to her she has discomfort in the lower back. 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 She denies numbness and tingling in the lower extremities.Past family, medical, social history and review of systems has been reviewed, updated and is located in the patient s chart.Examination:T he patient is well appearing and in no apparent distress. Alert and oriented x3. Gait is symmetric. No significant swelling, warmth, erythema about either knee. Range of motion of knees are full extension and flexion near 120 without severe pain. She does have tenderness over the pes bursal region bilaterally. She has good stability of both total knee replacements. His mild tenderness of the right side of the lower back. Range of motion lumbar spine is neutral in extension. Peripheral, vascular, lymphatic examination, skin, neurological, coordination, reflexes, sensation are within normal limits.Impression:St mar post bilateral total knee replacements with polyethylene wear and has bursitis. Spinal stenosis affecting weakness and gait abnormality of the lower extremities.Plan:I reviewed the diagnoses with the patient. She has been helped by the physical therapy. I think one of her main issues is spinal stenosis causing some weakness in her legs with long-term standing as well as her gait abnormality. She feels unsteady with walking. I encouraged her to continue with a home exercise program. I encouraged her to continue with formal therapy for lower extremity strengthening and gait training. I did give her another prescription for formal therapy. We did discuss the role of a referral to [facility] pain management if she were to continue to have worsening symptoms in her back. She will follow up with us with any worsening symptoms of her knees. At this point she does wish to proceed conservatively in regards to the polyethylene wear. Jose Luis Au PA-C [address] [place], [place] [address] [address], [place], [address], [facility] 01/13/2024 15:13:25 11/08/2024 text/html I am seeing the patient today under the supervision of Dr. Pierson who was available but who did not see the patient. REASON FOR VISITSluis antonio comes in today for evaluation with chief complaint of right and left shoulder pain. She has rotator cuff tear with rotator cuff arthropathy. She is back today reporting increased pain and discomfort in her right shoulder with day-to-day activities. She reports good benefit from previous injection in March. PAST MEDICAL/SURGICAL HISTORYCurrent medications per intake sheet. PHYSICAL FINDINGSThe patient is well appearing, in no apparent distress, alert and oriented to person, place and time. Gait is symmetric. No significant swelling, warmth or erythema about either shoulder. BilateralShoulder exam : Limited range of motion with slightly altered mechanics in all planes, there is mild tenderness to palpation about the shoulder, moderate crepitus through mid range manipulations. 4/5 strength of the shoulder with ER, Forward flexion. Negative belly press test. Minimal tenderness overlying AC joint. Cervical Exam demonstrates limited ROM without radicular symptoms. Peripheral, vascular, lymphatic examination, skin, neurologic coordination, reflexes, sensation are within normal limits. ASSESSMENTBilateral Chronic Rotator Cuff Tear PLANModerating activities with the upper extremity recommended. The patient will follow up as symptoms require going forward. [facility] speech recognition informatica architect software was used to create portions of this document. An attempt at proofreading has been made to minimize errors. Please call for corrections Andrea Cedeno PA-C [address] [facility] [address], [place], [address], [facility] 11/08/2024 13:43:52 OBGyn Episode No OBEpisode recorded.
--- OUTSIDE RECORDS SUMMARY | 2025-04-11 19:41 | XMS_ITS | Clinical Summary ---
Author Organization LL [address] [place] [address] [place] [phone] Phone Care Team Providers Care Seo Marketing Specialist Name Role Phone Adair Merrill MD Primary Care Provider Immunizations Immunization Administration Dates Next Due Pfizer (ages 12 [...] Health Maintenance Due Date Last Done Comments Colorectal Cancer Screening: Colonoscopy 1942 DTaP,Tdap,and Td Vaccines (1 - Tdap) 1961 Pneumococcal Vaccine: 50+ Years (1 of 2 - PCV) 1961 Zoster Vaccines (1 of 2) 1961 RSV Immunization Adult Patients (1 - 1-dose 75+ series) 2017 Cholesterol Screening (Lipid Panel) 06/01/2022 Falls Risk Assessment 06/01/2022 Osteoporosis Screening (Bone Density Screening) 06/01/2022 Social Influencers of Health Screening 06/01/2022 Hypertension/CHF/CAD Annual BMP Blood Test 06/06/2022 Medicare Annual Wellness Visit 04/15/2023 04/15/2022 Depression Screening 06/22/2024 COVID-19 Vaccine ( season) 2025 10/04/2021, 03/21/2021, 08/22/2020, Additional history exists Influenza Vaccine (#1) 2025 3, 03/19/2022, 03/21/2021, [...] on patient's age to complete this topic Insurance [employer]IC[employer] Care Teams Seo Marketing Specialist Relationship Specialty Start Date End Date Adair Merrill MD [address] [place] [address] PCP - General Internal Medicine 10/01/17
--- OUTSIDE RECORDS SUMMARY | 2025-04-11 19:41 | XMS_ITS | Encounter Summary ---
Author Organization [facility] Address [address] [place] [address] Care Team Providers Care Livestock Feeder Name Role Phone Adair Merrill MD Primary Care Provider Encounter Details Date Type Department Care Team (Late st Contact Info) Description 11/11/2024 Lab Requisition [facility] - Main Lab [address] [facility] [place] [phone] Justine Hall PA [address] [facility] [address] [place] [address] Dysuria Social History Tobacco Use Types Packs/Day Years Used Date Smoking Tobacco: Never Assessed Comments Unknown Sex and Gender Information Value Date Recorded Sex Assigned at Not on file Legal Sex Female 5:52 PM EST Gender Identity Not on file Sexual Orientation Not on file documented as of this encounter Plan of Treatment Not on file documented as of this encounter Procedures Procedure Name Priority Date/Time Associated Diagnosis Comments CULTURE URINE Routine 11/11/2024 12:00 AM EDT Dysuria documented in this encounter Results * (ABNORMAL) Culture urine (11/11/2024 12:00 AM EDT) Culture, Urine >100,000 CFU/mL Escherichia coli(A) DENNY 11/13/2024 12:45 PM EDT [facility] Comment: This is an edited result. [...] Escherichia coli Trimethoprim/Sulfamethoxazole DENNY >=320 ug/ml: Resistant us [facility] MICROBIOLOGY - GENERAL ORDER VALERIE Final Result [facility] [address] [place] [address], documented in this encounter Visit Diagnoses Diagnosis Dysuria documented in this encounter Care Teams Livestock Feeder Relationship Specialty Start Date End Date Adair Merrill MD [address] [place] [address] PCP - General Internal Medicine 10/01/17 documented as of this encounter
--- OUTSIDE RECORDS SUMMARY | 2025-04-11 19:41 | XMS_ITS | Data Portability ---
Author Organization [place] - [facility], Allergy Address [address] [address] Care Team Providers Care Communications Field Technician Name Role Phone SARAH BETH NAM Primary Care Provider Unavailab le SARAH BETH NAM Referring Provider Unavailable Assessment Encounter Date Assessment Date Assessment LastModified by Organization Details LastModified Time 03/09/2025 03/09/2025 Patient describes symptoms of chronic rhinitis, suggestive of vasomotor rhinitis. This condition is often characterized by clear watery nasal discharge which is made worse with temperature fluctuation, eating, supine position as well as use of CPAP. I recommend continuing intranasal ipratropium bromide, which has significantly improved her symptom. We discussed she can increase the frequency to 3 times daily. She may gradually increase the frequency if they find relief. Side effects of drying the nasal mucosa may decrease the tolerance of this medication. They may also use nasal saline to help balance the nasal mucosa. Patient understands and will follow-up as needed for medication refill. [email or web address] Not available 03/09/2025 13:39:38 Plan of Treatment Reminders Order Date Submit Date Provider Last Modified By Organization Details Last Modified Time Details Appointments None recorded. Lab None recorded. Referral None recorded. Procedures None recorded. Surgeries None recorded. Imaging None recorded. Medication Orders ipratropium bromide 21 mcg (0.03 %) nasal spray 2024 [facility] - [place], [place], [address] [facility], [place], [address], 15:49:55 Patient TargetsNo targets recorded. Patient InstructionsNo instructions recorded. Reason for Referral None Reported. Problems Name Problem SNOMED Code Status Onset Date Resolution Date Notes Provider Name and Address Organization Details Recorded Time Vasomotor rhinitis 4768959 Active 025 LAZARO TRACY PA-C [address] [facility] 100, [facility] [place], [phone] , [place] - [facility] 13:39:41 Chronic rhinitis 60485963 Active 025 LAZARO TRACY PA-C [address] [facility] 100, [place], [address] , [place] - [facility] 13:39:48 Problem Notes None recorded. Procedures Surgical History Date Name Laterality Status Provider Name and Address Organization Details Recorded Time cholecystectomy completed Lala Garcia [place] - [facility] 03/09/2025 13:17:33 endoscopic carpal tunnel release completed Lala Garcia [place] - [facility] 03/09/2025 13:18:24 Cataract Surgery completed Lala Garcia [place] - [facility] 03/09/2025 13:21:35 fusion of joint of cervical spine with internal fixation by posterior approach completed Lala Garcia [place] - [facility] 03/09/2025 13:22:13 total replacement of left hip joint completed Lala Garcia [place] - [facility] 03/09/2025 13:22:34 total replacement of right hip joint completed Lala Garcia [place] - [facility] 03/09/2025 13:22:43 hysterectomy completed Lala Garcia [place] - [facility] 03/09/2025 13:22:54 excision of bilateral labia completed Lala Garcia [place] - [facility] 03/09/2025 13:23:16 repair of ligament completed Lala Garcia [place] - [facility] 03/09/2025 13:23:41 lumpectomy of breast completed Lala Garcia [place] - [facility] 03/09/2025 13:23:54 knee joint operation completed Lala Garcia [place] - [facility] 03/09/2025 13:24:51 release of trigger thumb completed Lala Garcia [place] - [facility] 03/09/2025 13:25:05 release of trigger finger completed Lala Motyka [place] - [facility] 03/09/2025 13:25:12 colonoscopy completed Lala Beacha PA - [facility] 03/09/2025 13:25:28 sleep studies completed Lala Garcia PA - [facility] 03/09/2025 13:26:19 operation on femoral artery completed Lala Garcia [place] - [facility] 03/09/2025 13:26:41 Imaging Results None recorded. Procedure Notes None recorded. Medical Equipment None Reported. Allergies Allergen ID Allergen Name Allergen Category Reaction Reaction Severity Criticality Documentation Date Start Date Code Code System Note Provider Name and Address Organization Details Recorded Time [id number] allopurin ol medicatio n Not available Not available Not available 03/09/2025 519 RxNorm Lala Motyka null, [place] - [facility] 13:14:37 607297 doxycycli ne Not available Not available Not available Not available 03/09/2025 3640 RxNorm Lala Motyka null, [place] - [facility] 13:14:45 728617 Bactrim medicatio n Not available Not available Not available 03/09/2025 22114 9 RxNorm Lala Motyka null, [place] - [facility] 13:14:52 564083 cephalexi n medicatio n Not available Not available Not available 03/09/2025 2231 RxNorm Lala Motyka null, [place] - [facility] 13:15:05 266696 Cipro medicatio n Not available Not available Not available 03/09/2025 26069 3 RxNorm Lala Motyka null, [place] - [facility] 13:15:15 526813 Vesicare medicatio n Not available Not available Not available 03/09/2025 51681 2 RxNorm Lala Motyka null, [place] - [facility] 5 13:15:24 Medications Name Sig Start Date Stop Date Status Note LastModified by Organization Details LastModified Time amoxicillin 500 mg capsule TAKE 1 CAPSULE BY MOUTH THREE TIMES DAILY UNTIL FINISHED 03/09 completed Not Available Not Available Not Available fluconazole 150 mg tablet TAKE 1 tablet By Mouth Once, repeat dose if still having symptoms in 72 hours active Not Available Not Available No t Available topiramate 25 mg tablet TAKE 1 TABLET BY MOUTH ONCE DAILY AT BEDTIME active Not Available Not Available No t Available propranolol 60 mg tablet TAKE 1 TABLET BY MOUTH TWICE DAILY active Not Available Not Available No t Available triamcinolo ne acetonide 0.1 % dental paste apply 1 applicati on By Mouth 3 times a day active Not Available Not Available No t Available amoxicillin 250 mg capsule TAKE 1 CAPSULE BY MOUTH THREE TIMES DAILY UNTIL FINISHED 03/09 completed Not Available Not Available Not Available azelastine 137 mcg (0.1 %) nasal spray instill 2 SPRAYS IN BOTH nostrils TWICE DAILY NEEDED FOR ALLERGY symptoms active Not Available Not Available No t Available ipratropium bromide 42 mcg (0.06 %) nasal spray instill 2 SPRAYS IN EACH nostril 4 TIMES DAILY active Not Available Not Available No t Available fluticasone propionate 50 mcg/actuati on nasal spray,suspe nsion instil 2 SPRAYS IN EACH nostril DAILY. shake WELL BEFORE using active Not Available Not Available No t Available ipratropium bromide 21 mcg (0.03 %) nasal spray [place] 2 sprays 3 times a day by intranasa l route as directed for vasomotor rhinitis. active Not Available Not Available No t Available diazepam 5 mg tablet TAKE 1-2 tabletS BY MOUTH 1 hour prior to procedure (upon arrival to office) active Not Available Not Available No t Available amoxicillin 875 mg-potassiu m clavulanate 125 mg tablet TAKE 1 TABLET BY MOUTH TWICE DAILY FOR 10 DAYS 03/09 completed Not Available Not Available Not Available oxycodone 5 mg tablet TAKE 1 TABLET BY MOUTH every 4 hours NEEDED FOR PAIN active Not Available Not Available No t Available ezetimibe 10 mg tablet TAKE 1 TABLET BY MOUTH DAILY active Not Available Not Available No t Available cinacalcet 30 mg tablet TAKE 1 TABLET BY MOUTH DAILY active Not Available Not Available No t Available nitrofurant oin monohydrate /macrocryst als 100 mg capsule TAKE 1 CAPSULE BY MOUTH TWICE DAILY WITH food 03/09 completed Not Available Not Available Not Available Vitals Date Recorded Body height Body mass index (BMI) Body weight Provider Name and Address Organization Details Last Updated DateTime 03/09/2025 160.02 cm 35.4 kg/m2 84699.47 g Lala Garcia [place] - [facility] 03/09/2025 13:14:23 Social History None recorded. Functional Status Question Answer Note LastModified by Organizat ion Details LastModified Time What is your level of alcohol consumption? [email or web address] [email or web address] Information not available 03/09/2025 Mental Status None recorded. Family History Nothing Reported. Medical History Condition Response Tonsil Infections N Emphysema N Depression N COPD N Arthritis Y Cancer Y Stroke N Headaches Y Fibromyalgia N Kidney Disease N Heart Problems N Anxiety N Migraines Y Other Skin Condition N Rhinitis N Bleeding Disorder N Food Allergy N Nasal polyps N Asthma N Sleep Disorder N GERD/Reflux N Glaucoma N Nasal or Sinus Problems N Anesthesia Complications N Hearing Loss N High Cholesterol N Liver Disease N Speech Delay N Allergies/Hayfever N Thyroid Problems N Developmental Delay N Anemia N Immune System Disorder N Heart Attack ([place]) N Diabetes N Hyperlipidemia N Dementia N Hypertension Y Gynecological HistoryNo gynecological history recorded. Obstetrics History GPAL:G 0 P 0 0 0 0 Past Encounters Encounter ID Performer Location Encounter Start Date Encounter Closed Date Diagnosis/Indication Diagnosis SNOMED-CT Code Diagnosis ICD10 Code Diagnosis IMO Codes Diagnosis Note [id number] LAZARO TRACY PA-C [facility] [address] [address] 03/09/2025 12:53:05 03/09/2025 13:32:42 Vasomotor rhinitis 6624221 J30.0 75698 Health Concerns Section Related Observation LastModified by Organization Detai ls LastModified Time None Recorded Concern Status LastModified by Organization Details LastModified Time None Recorded Advance Directives Directive None Recorded Payers Insurance Date Sequence Insurance Name Policy Number Policy [place] Covered Member ID [place] Member ID Guarantor Name 03/06/2025 1 [place]: [employer] Tana Orozco [id number] Tana Orozco 03/06/2025 2 [facility] (MEDICAID HMO) Tana Orozco [id number] Tana Orozco Notes Date Note Type Note Provider Name and Address Organization Details Recorded Time 03/09/2025 text/html ROS as noted in the HPI 84-year-old female presents for evaluation of chronic runny nose for 2 years. No improvement with intranasal steroid or antihistamine nasal spray. She nasal ipratropium bromide approximately 6 months ago, and reports significant improvement. Denies nasal congestion, nasal pain, anosmia, or related facial pressure. No history of environmental allergies. 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 She is followed by neurology, Dr. Iniguez, at . PMH also includes CAD, CHF, COPD, peripheral neuropathy on gabapentin, hyperparathyroidism . She is followed by cardiology and pulmonology. LAZARO TRACY PA-C [address] [place] [address], [place], [address], [facility] - [facility] 03/09/2025 13:41:17 OBGyn Episode No OBEpisode recorded.
== END 2025-04-11 14:53 | disposition home or self-care (01) ==
LOC: HO.HSM 14:36
PROVIDERS: PCP Internal Medicine; Visit Provider Registered Nurse
DX: G43.109 Migraine with aura, not intractable, without status migrainosus (principal); G62.9 Polyneuropathy, unspecified; G31.84 Mild cognitive impairment of uncertain or unknown etiology
CPT/HCPCS: 99214

== ENCOUNTER → 2025-04-11 14:35 | Outpatient (BNVA) | payer MEDICARE, OTHER, SELFPAY | PROVIDERS: PCP Internal Medicine; Visit Provider Registered Nurse | DX: G43.109 Migraine with aura, not intractable, without status migrainosus (principal); G62.9 Polyneuropathy, unspecified; G31.84 Mild cognitive impairment of uncertain or unknown etiology | CPT/HCPCS: 99212 ==